=== PATIENT | male | born 1955 | race Hispanic/Latino ===

== ENCOUNTER 2019-01-23 14:28 | Emergency (ER) | payer MEDICARE, OTHER ==
[2019-01-23 14:31] VITALS: O2SAT 99; BMI 26.4
[2019-01-23] MEDS ORDERED: Fluorescein 1 mg Ophthalmic Strip ONE (14:46)
[2019-01-23] MEDS ORDERED: Tetracaine 0.5% Ophth 2 ML BOTTLE ONE (14:46)
[2019-01-23] MEDS ORDERED: Tetracaine 0.5% Ophth 2 ML BOTTLE OD ONE (14:49)
[2019-01-23] MEDS ORDERED: Fluorescein 1 mg Ophthalmic Strip OD ONE (14:49)
--- NOTE | 2019-01-23 15:11 | ED PDOC ---
HPI: Eye Injury/Pain Time Seen by Provider: 01/23/19 14:39 Chief Complaint (Nursing): Eye Problem Chief Complaint (Provider): Eye Injury History Per: Patient History/Exam Limitations: no limitations Onset/Duration Of Symptoms: Mins Current Symptoms Are (Timing): Still Present Additional Complaint(s): Patient is a 63 year old male who presents to the emergency department for evaluation of a right eye injury. Patient reports he got injured playing baseball with a tennis ball with his son. He states that he was pitching to his son when the son struck the ball into the patient's right eye. Patient complains of bruising and swelling to the eye orbit. He does not wear glasses or contacts and describes the pain as 3/10. Otherwise: (-) fever, (-) LOC, (-) dizziness, (-) nausea/vomiting, (-) visual changes (-) epistaxis. PMD: Crescencio Fajardo Tetanus: UTD Past Medical History Reviewed: Historical Data, Nursing Documentation, Vital Signs Vital Signs: Last Vital Signs Temp 98.1 F 01/23/19 14:32 Pulse 75 01/23/19 14:32 Resp 16 01/23/19 14:32 BP 154/81 H 01/23/19 14:32 Pulse Ox 99 01/23/19 14:32 - Medical History PMH: HTN - Surgical History Surgical History: No Surg Hx - Family History Family History: States: Unknown Family Hx - Social History Alcohol: Social - Home Medications Home Medications: Ambulatory Orders Medication Instructions Recorded Codeine Phosphate/Promethazi 5 ml PO Q6 #80 ml 02/07/15 [Promethazine with Codeine 10 mg/5 ml-6.25 mg/] Ibuprofen [Motrin] 600 mg PO Q6 PRN #20 tab 02/07/15 Meloxicam [Mobic] 15 mg PO DAILY PRN #14 tablet 01/23/19 - Allergies Allergies/Adverse Reactions: Allergies Allergy/AdvReac Type Severity Reaction Status Date / Time No Known Allergies Allergy Verified 01/23/19 14:35 Review of Systems ROS Statement: Except As Marked, All Systems Reviewed And Found Negative Constitutional: Negative for: Fever Eyes: Positive for: Pain (with some swelling) Gastrointestinal: Negative for: Vomiting Neurological: Negative for: Dizziness, Other (LOC) Physical Exam - Reviewed Nursing Documentation Reviewed: Yes Vital Signs Reviewed: Yes - Physical Exam Comments: GENERAL APPEARANCE: Patient is awake, alert, oriented x 3, in no acute distress. Resting comfortably, on cell phone. HEENT: (+) diffuse tenderness to right eye orbit, (+) mild edema and ecchymosis to right eye orbit, (+) full ROM of mandible, dentition intact and non tender (-) other facial swelling or erythema, (-) facial blisters. (-) palpable deformity (-) other facial bone tenderness. Mucous membranes are moist. Airway patent, (-) stridor. VISUAL ACUITIES: Left eye: 20/ 30 ; Right eye: 20/ 30. Both: 20/25 LIDS & LASHES: Normal. PUPILS: Pupils equal and reactive. EOMI's: Intact and painless CONJUNCTIVAE: diffuse conjunctival injection of right eye ANTERIOR CHAMBER: (-) foreign body, (-) hyphema. FLUORESCEIN: (-) uptake SKIN: Warm, dry; (-) cyanosis; (-) rash. HEAD: (-) scalp swelling or tenderness NECK: Supple, FROM (-) tenderness, (-) stiffness, (-) meningismus, (-) lymphadenopathy. CHEST AND RESPIRATORY: (-) rales, (-) rhonchi, (-) wheezes; breath sounds equal bilaterally. Respirations even and nonlabored. HEART AND CARDIOVASCULAR: (-) irregularity EXTREMITIES: (-) deformity. NEURO AND PSYCH: Mental status as above. (-) facial asymmetry; tongue and uvula midline. Strength and sensation symmetric. Gait: steady. Speech: clear. Cerebellar tests intact. - ECG O2 Sat by Pulse Oximetry: 99 (RA) Pulse Ox Interpretation: Normal Medical Decision Making Medical Decision Making: Time: 1450 Impression: facial contusion, eye injury; rule out orbital fracture Plan: --CT orbits/facials without contrast --Tylenol 650 mg PO --Crrmp-E-Tanks A.T 1 mg RTE --Tetracaine 0.5% Ophth Soln x1 drop OD Time: 1546 CT orbit findings: Date of service: 01/23/2019 PROCEDURE: CT ORBITS WITHOUT CONTRAST. However capsular right cough this Eau elbow in the radiation CT so HISTORY: r/o fracture, struck with ball to right eye orbit COMPARISON: None available. TECHNIQUE: Axial CT images of the orbits were obtained. Coronal and sagittal reformats were generated. Radiation dose: Total exam DLP = 885.17 mGy-cm. This CT exam was performed using one or more of the following dose reduction techniques: Automated exposure control, adjustment of the mA and/or kV according to patient size, and/or use of iterative reconstruction technique. FINDINGS: RIGHT ORBIT: RIGHT BONY ORBIT: Normal. RIGHT INTRAORBITAL STRUCTURES: Globe: Normal. Extraocular muscles: Normal. Post septal space: Normal. Optic Nerve: Normal. Lacrimal Apparatus: Normal. RIGHT PRESEPTAL SOFT TISSUES: Preseptal soft tissue swelling, mild. No visualized radiopaque foreign body. LEFT ORBIT: LEFT BONY ORBIT: Normal. LEFT INTRAORBITAL STRUCTURES: Globe: Normal. Extraocular muscles: Normal. Post septal space: Normal Optic Nerve: Normal. . Lacrimal Apparatus: Normal. LEFT PRESEPTAL SOFT TISSUES: Normal. OTHER: None. IMPRESSION: Unilateral, right preseptal soft tissue swelling. No abnormalities with respect to the globe. No retro conal or extra ocular abnormalities. Unremarkable lacrimal apparatus. On re-evaluation, patient reports improvement of symptoms. On exam, patient remains AAOx3, in no acute distress. Lungs clear to auscultation, cardiac RRR, repeat neuro exam shows no focal findings. Vitals stable. Lab/Diagnostic results d/w the patient in great detail. Diagnosis of facial contusion, head injury d/w the patient. Based on history, exam and diagnostic results, plan will be for outpatient follow up ophtho. Patient instructed to follow-up with pmd / referral provided / the clinic in 1- 2 days without fail. Advised to take medication as prescribed. Return to the emergency room at any time for any new or worsening symptoms. Patient states he fully agrees with and understands discharge instructions. States that he agrees with the plan and disposition. Verbalized and repeated discharge instructions and plan. I have given the patient opportunity to ask any additional questions. - Scribe Attestation: Documented by Faheem Bernard acting as a scribe for Rosmery Murray Provider Scribe Attestation: All medical record entries made by the Scribe were at my direction and personally dictated by me. I have reviewed the chart and agree that the record accurately reflects my personal performance of the history, physical exam, medical decision making, and the department course for this patient. I have also personally directed, reviewed, and agree with the discharge instructions and di sposition. Disposition - Clinical Impression Clinical Impression: Facial contusion, Black eye of right side, Head injury - Patient ED Disposition Is Patient to be Admitted: No Counseled Patient/Family Regarding: Studies Performed, Diagnosis, Need For Followup, Rx Given - Disposition Referrals: Naveen Chand MD [Staff Provider] - Disposition: Routine/Home Disposition Time: 16:30 Condition: STABLE Additional Instructions: The emergency medical care you received today was directed at your acute symptoms. If you were prescribed any medication, please fill it and take as directed. It may take several days for your symptoms to resolve. Return to the Emergency Department if your symptoms worsen, do not improve, or if you have any other problems. Please contact your doctor in 2 days for re-evaluation and follow up / or call one of the physicians/clinics you have been referred to that are listed on the Patient Visit Information form that is included in your discharge packet. Bring any paperwork you were given at discharge with you along with any medications you are taking to your follow up visit. Our treatment cannot replace ongoing medical care by a primary care provider (PCP) outside of the emergency department. Prescriptions: Meloxicam [Mobic] 15 mg PO DAILY PRN #14 tablet PRN Reason: Pain, Moderate (4-7) Instructions: Black Eye, Closed Head Injury, Contusion (DC), Minor Head Injury (DC) Forms: [facility] (Welsh) Print Language: LATVIAN
--- NOTE | 2019-01-23 16:09 | CT ---
Date of service: 01/23/2019 PROCEDURE: CT ORBITS WITHOUT CONTRAST. However capsular right cough this Eau elbow in the radiation CT so HISTORY: r/o fracture, struck with ball to right eye orbit COMPARISON: None available. TECHNIQUE: Axial CT images of the orbits were obtained. Coronal and sagittal reformats were generated. Radiation dose: Total exam DLP = 885.17 mGy-cm. This CT exam was performed using one or more of the following dose reduction techniques: Automated exposure control, adjustment of the mA and/or kV according to patient size, and/or use of iterative reconstruction technique. FINDINGS: RIGHT ORBIT: RIGHT BONY ORBIT: Normal. RIGHT INTRAORBITAL STRUCTURES: Globe: Normal. Extraocular muscles: Normal. Post septal space: Normal. Optic Nerve: Normal. Lacrimal Apparatus: Normal. RIGHT PRESEPTAL SOFT TISSUES: Preseptal soft tissue swelling, mild. No visualized radiopaque foreign body. LEFT ORBIT: LEFT BONY ORBIT: Normal. LEFT INTRAORBITAL STRUCTURES: Globe: Normal. Extraocular muscles: Normal. Post septal space: Normal Optic Nerve: Normal. . Lacrimal Apparatus: Normal. LEFT PRESEPTAL SOFT TISSUES: Normal. OTHER: None. IMPRESSION: Unilateral, right preseptal soft tissue swelling. No abnormalities with respect to the globe. No retro conal or extra ocular abnormalities. Unremarkable lacrimal apparatus.
[2019-01-23 17:42] VITALS: BP 138/80; PULSE 74; RESP 18; TEMP 98.2
== END 2019-01-23 17:42 | disposition home or self-care (01) ==
LOC: H.ER 14:28
DX: S00.11XA Contusion of right eyelid and periocular area, initial encounter (principal); W22.8XXA Striking against or struck by other objects, initial encounter; Y93.64 Activity, baseball; I10 Essential (primary) hypertension